=== PATIENT | male | born 1955 | race Caucasian/White ===

== ENCOUNTER 2019-03-23 08:58 | Day surgery (SDC) | payer BC ==
[~2019-03-23 08:58] MED LIST: ACETAMINOPHEN 1,000 MG/100 ML BTL IVPB ONE
[2019-03-23] MEDS ORDERED: FENTANYL PF 100MCG/2ML VIAL IV ONE (08:59)
[2019-03-23] MEDS ORDERED: LIDOCAINE 2% MDV (20MG/ML) 20ML VIAL IV ONE (08:59)
[2019-03-23] MEDS ORDERED: ONDANSETRON HCL IV 4 MG/2 ML VIAL IVP ONE (08:59)
[2019-03-23] MEDS ORDERED: GLYCOPYRROLATE 0.2 MG/ML ML IV ONE (08:59)
[2019-03-23] MEDS ORDERED: PROPOFOL 10 MG/ML VIAL IV ONE (08:59)
[2019-03-23] MEDS ORDERED: SEVOFLURANE 250 ML INH ONE (08:59)
[2019-03-23] MEDS ORDERED: MIDAZOLAM HCL 2MG/2ML VIAL IV ONE (08:59)
[2019-03-23] MEDS ORDERED: RINGERS SOLUTION,LACTATED 1,000 ML IV ONE ×2 (10:00→10:55)
== END 2019-03-23 12:10 | disposition home or self-care (01) ==
LOC: SUR 08:58
PROVIDERS: ATTEND Orthopaedic Surgery
DX: M25.721 Osteophyte, right elbow (principal); I10 Essential (primary) hypertension; I47.1 Supraventricular tachycardia
CPT/HCPCS: 24101; 01740; J2405; J3010; J7120